=== PATIENT | female | born 1965 | race Caucasian/White ===

== ENCOUNTER → 2016-03-30 | Outpatient (CLI) | payer OTHER ==
--- NOTE | 2016-03-30 17:16 | MA ---
Screening Digital Mammogram Clinical Indications: Routine screening. Technique: Standard cephalocaudal and mediolateral oblique projections are obtained. This examinati on is processed by the [email or web address] computer aided detection system. Comparison: February 2015, February 2014, February 2013 and February 2012 Breast density: B; There are scattered fibroglandular densities. Findings: CAD was reviewed. There is a new 1 cm rounded lesion in the 6:00 position of the left breas t. Not all margins are well-defined. The patient has a history of a benign left breast cyst in a diff erent quadrant. Impression: Possible mass lower left breast. BI-RADS 0. Additional imaging lower left breast with ultrasound. Recommendation: Ultrasound lower left breast. [facility] will send a result letter to the patient. Negative mammography should not preclude additional workup of a clinically suspicious finding. The patient's information is entered into a reminder system with a target due date for her next mammo gram.
== END ==
LOC: BRMIMAGING 11:15
DX: Z12.31 Encounter for screening mammogram for malignant neoplasm of breast (principal)
CPT/HCPCS: G0202

== ENCOUNTER → 2016-04-14 | Outpatient (CLI) | payer OTHER ==
--- NOTE | 2016-04-14 10:17 | US ---
Left Breast Sonography Clinical History: 50-year-old female noted to have a neodensity in the 6 o'clock position of the left breast on recent screening mammography with historical evidence of a benign cyst in the upper-outer left breast. There is no family history of breast cancer. Technique: A linear 12 MHz transducer was used to sonographically evaluate the 6 o'clock position of the left breast. Color Doppler and harmonics were used. Comparison Study: Screening mammography, dated March 30, 2016. Findings: In the 6 o'clock position, 5 cm from the nipple, there is a well-circumscribed oval-shaped 9 x 9 x 6 mm anechoic structure with no intrinsic vascularity, septation, mural nodularity, or debris . The through-transmission is better demonstrated with harmonics. Impression: Benign simple cysts corresponding to the mammographic neodensity. Recommendation: Routine annual mammographic screening.
== END ==
LOC: BRMIMAGING 09:13
DX: N60.02 Solitary cyst of left breast (principal)
CPT/HCPCS: 76641-PO

== ENCOUNTER → 2017-04-18 | Outpatient (CLI) | payer OTHER | LOC: BRMIMAGING 12:52 | DX: Z12.31 Encounter for screening mammogram for malignant neoplasm of breast (principal) ==

== ENCOUNTER → 2017-04-26 | Outpatient (CLI) | payer OTHER | LOC: BRMIMAGING 10:07 | DX: N63.10 Unspecified lump in the right breast, unspecified quadrant (principal) | CPT/HCPCS: 76641-PO ==

== ENCOUNTER → 2017-04-27 | Outpatient (CLI) | payer OTHER | LOC: BRMIMAGING 09:37 | DX: N63.10 Unspecified lump in the right breast, unspecified quadrant (principal) ==

== ENCOUNTER → 2018-03-15 | Outpatient (CLI) | payer OTHER | LOC: BRMIMAGING 10:46 | DX: Z12.31 Encounter for screening mammogram for malignant neoplasm of breast (principal) ==